=== PATIENT | female | born 1995 | race Caucasian/White ===

== ENCOUNTER 2017-07-21 08:45 | Inpatient (IN) | payer MEDICAID ==
[2017-07-21] MEDS ORDERED: Penicillin G Potassium 5 MILLUNITS in Sodium Chloride 0.9% 100 ML IV ONE (09:59)
[2017-07-21] MEDS: Lactated Ringers 1,000 ML IV SCH ×2 (10:23→18:01)
[2017-07-21] MEDS: Sodium Chloride 0.9% 10 ML Syringe FLUSH PRN (10:23)
[2017-07-21] MEDS ORDERED: Oxytocin/Normal Saline 10 UNIT/1,000 ML BAG IV SCH (11:30)
[2017-07-21] MEDS ORDERED: Nalbuphine 10 MG/1 ML Vial IVPUSH PRN (14:18)
[2017-07-21] MEDS: Penicillin G Potassium 2.5 MILLUNITS in Sodium Chloride 0.9% 100 ML IV SCH ×2 (14:30→23:38)
[2017-07-21] MEDS ORDERED: fentaNYL 300 MCG in Ropivacaine 200 ML EPIDUR ONE (16:15)
[2017-07-21] MEDS ORDERED: fentaNYL 100 MCG/2 ML SDV EPIDUR ONE (16:15)
--- NOTE | 2017-07-21 18:34 | PCM.LDHP ---
L&D History of Present Illness - General Date of Service: 07/21/17 Admit Problem/Dx: Patient Status Order with Admit Dx/Problem 07/21/17 08:45 Admission Status [Patient Status] [ADT] Routine 07/21/17 08:54 Admission Status [Patient Status] [ADT] Routine Admission Diagnosis/Problem Admission Diagnosis/Problem -related examination Source of Information: Patient History Limitations: Reports: No Limitations - History of Present Illness Introduction:: 22 yo primigravida here because of PROM.She is term. Pain Score: 9 - Related Data Allergies/Adverse Reactions: Allergies Allergy/AdvReac Type Severity Reaction Status Date / Time No Known Allergies Allergy Verified 07/21/17 09:51 Past Medical History [employer] History: Reports: Psychiatric History: Reports: Anxiety, Depression Hematologic History: Reports: Anemia Social & Family History - Family History Family Medical History: Noncontributory - Tobacco Use Smoking Status *Q: Former Smoker Years of Tobacco use: 4 Packs/Tins Daily: 1 Used Tobacco, but Quit: Yes Month Tobacco Last Used: October 2016 Second Hand Smoke Exposure: Yes - Caffeine Use Caffeine Use: Reports: None - Recreational Drug Use Recreational Drug Use: No Drug Use in Last 12 Months: No Recreational Drug Type: Reports: Marijuana/Hashish Recreational Drug Use Frequency: Not Used In Over 6 Months H&P Review of Systems - Review of Systems: Review Of Systems: ROS reveals no pertinent complaints other than HPI. L&D Exam - Exam Exam: See Below - Vital Signs Vital Signs: Last Vital Signs Temp Pulse 65 07/21/17 17:24 Resp BP 113/66 07/21/17 16:57 Pulse Ox 100 07/21/17 17:24 Weight: 64.864 kg - OB Specific Contraction Duration (sec): 40-80 Contraction Frequency (min): 1-3 Contraction Intensity: Moderate to Strong - Wagoner Score Wagoner Score Cervix Position: Posterior Wagoner Score Consistency: Soft Wagoner Score Dilation: 1-2 cm Wagoner Score Infant's Station: -2 - Exam General: Alert, Oriented HEENT: PERRLA, Conjunctiva Clear, EACs Clear, EOMI, Hearing Intact, Mucosa Moist & [place], Nares Patent, Normal Nasal Septum, Posterior Pharynx Clear, TMs Clear Neck: Supple, Trachea Midline Lungs: Clear to Auscultation, Normal Respiratory Effort Cardiovascular: Regular Rate, Regular Rhythm GI/Abdominal Exam: Normal Bowel Sounds, Soft, Non-Tender, No Organomegaly, No Distention, No Abnormal Bruit, No Mass, Pelvis Stable Rectal Exam: Normal Exam, Normal Rectal Tone Genitourinary: Normal external exam, Normal bimanual exam, Normal speculum exam Back Exam: Normal Inspection, Full Range of Motion Extremities: Normal Inspection, Normal Range of Motion, Non-Tender, No Pedal Edema, Normal Capillary Refill Skin: Warm, Dry, Intact Neurological: Cranial Nerves Intact, Reflexes Equal Bilateral Psychiatric: Alert, Normal Affect, Normal Mood - Patient Data Lab Results Last 24 hrs: Laboratory Results - last 24 hr 07/21/17 Range/Units 09:36 Membrane Rupture Positive H (NEGATIVE) - Problem List (1) Term SNOMED Code(s): 46016645 ICD Code: Z34.80 - ENCOUNTER FOR SUPRVSN OF NORMAL , UNSP TRIMESTER Status: Acute Current Visit: Yes (2) PROM (premature rupture of membranes) SNOMED Code(s): 77704911 ICD Code: O42.90 - YADIRA ROM, 7TH0 BETW RUPT & ONST LABR, UNSP WEEKS OF GEST Status: Acute Current Visit: Yes Qualifiers: PROM onset of labor timing: onset of labor within 24 hours of rupture PROM gestational age: full term Qualified Code(s): O42.02 - Full-term premature rupture of membranes, onset of labor within 24 hours of rupture (3) Group beta Strep positive SNOMED Code(s): 8388453733085 ICD Code: B95.1 - STREPTOCOCCUS, GROUP B, CAUSING DISEASES CLASSD ELSWHR Status: Acute Current Visit: Yes Problem List Initiated/Reviewed/Updated: Yes Orders Last 24hrs: Active Orders 24 hr Category Date Time Status Admission Status [Patient Status] [ADT] Routine ADT 07/21/17 08:45 Active Admission Status [Patient Status] [ADT] Routine ADT 07/21/17 08:54 Active Communication Order [RC] ASDIRECTED Care 07/21/17 11:25 Active Communication Order [RC] ASDIRECTED Care 07/21/17 11:25 Active Communication Order [RC] ASDIRECTED Care 07/21/17 11:25 Active Communication Order [RC] ASDIRECTED Care 07/21/17 11:25 Active Communication Order [RC] ASDIRECTED Care 07/21/17 11:27 Active Communication Order [RC] ASDIRECTED Care 07/21/17 11:27 Active Communication Order [RC] ASDIRECTED Care 07/21/17 11:27 Active Communication Order [RC] ASDIRECTED Care 07/21/17 11:27 Active Notify Provider [RC] PRN Care 07/21/17 11:25 Active Notify Provider [RC] PRN Care 07/21/17 11:27 Active Notify Provider [RC] STAT Care 07/21/17 11:25 Active Notify Provider [RC] STAT Care 07/21/17 11:27 Active PCEA Epidural [RC] ASDIRECTED Care 07/21/17 17:15 Active Vital Signs [RC] PER UNIT ROUTINE Care 07/21/17 11:25 Active Lactated Ringers [Ringers, Lactated] 1,000 ml Med 07/21/17 10:15 Active IV ASDIRECTED Nalbuphine [Nubain] Med 07/21/17 14:18 Active 10 mg IVPUSH Q3H PRN Oxytocin/Normal Saline [Pitocin in NS 10 UNITS/1,000 ML Med 07/21/17 11:30 Active ] 10 unit in 1,000 ml IV TITRATE Penicillin G Potassium [Pfizerpen] 2.5 millunits Med 07/21/17 14:30 Active Sodium Chloride 0.9% [Normal Saline] 100 ml IV Q4H Sodium Chloride 0.9% [Saline Flush] Med 07/21/17 10:04 Active 10 ml FLUSH ASDIRECTED PRN Peripheral IV Insertion Adult [OM.PC] Routine Oth 07/21/17 10:04 Ordered Medication Orders Lactated Ringer's (Ringers, Lactated) 1,000 mls @ 125 mls/hr IV ASDIRECTED [facility] Last Admin: 07/21/17 18:01 Dose: 125 mls/hr Infusion: 07/21/17 18:01 Dose: 125 mls/hr Admin: 07/21/17 10:23 Dose: 125 mls/hr Penicillin G Potassium 2.5 (millunits/ Sodium Chloride) 100 mls @ 100 mls/hr IV Q4H [facility] Last Admin: 07/21/17 14:30 Dose: 100 mls/hr Oxytocin/Sodium Chloride (Pitocin In Ns 10 Units/1,000 Ml) 10 unit in 1,000 mls @ 12 mls/hr IV TITRATE ROBBY; 2 MUNITS/MIN PRN Reason: Protocol Last Titration: 07/21/17 16:30 Dose: 0 munits/min, 0 mls/hr Titration: 07/21/17 15:49 Dose: 9 munits/min, 54 mls/hr Titration: 07/21/17 15:17 Dose: 10 munits/min, 60 mls/hr Titration: 07/21/17 14:43 Dose: 8 munits/min, 48 mls/hr Titration: 07/21/17 13:12 Dose: 6 munits/min, 36 mls/hr Titration: 07/21/17 12:34 Dose: 4 munits/min, 24 mls/hr Admin: 07/21/17 11:59 Dose: 2 munits/min, 12 mls/hr Nalbuphine HCl (Nubain) 10 mg IVPUSH Q3H PRN PRN Reason: Pain Last Admin: 07/21/17 14:34 Dose: 10 mg Sodium Chloride (Saline Flush) 10 ml FLUSH ASDIRECTED PRN PRN Reason: Keep Vein Open Last Admin: 07/21/17 10:23 Dose: 10 ml Assessment/Plan Comment:: Proceed with Augmentation of labor with PITOCIN,and start PCN for GBS prophylaxis.
[2017-07-21] MEDS ORDERED: hydrOXYzine HCl 50 MG/ML SDV IM PRN ×2 (19:24)
[2017-07-21] MEDS ORDERED: ePHEDrine 50 MG/ML SDV IVPUSH PRN (19:24)
[2017-07-21] MEDS ORDERED: Promethazine 25 MG/ML SDV IV PRN (19:24)
[2017-07-21] MEDS ORDERED: diphenhydrAMINE 50 MG/ML SDV IVPUSH PRN (19:24)
[2017-07-21] MEDS ORDERED: Naloxone 0.4 MG in Sodium Chloride 0.9% 100 ML IV PRN (19:24)
[2017-07-21] MEDS ORDERED: Naloxone 0.4 MG/ML SDV IVPUSH PRN (19:24)
[2017-07-21] MEDS ORDERED: diphenhydrAMINE 50 MG/ML SDV IV PRN (19:28)
[2017-07-21] MEDS ORDERED: Ondansetron 4 MG/2 ML SDV IVPUSH PRN (19:29)
[2017-07-21] MEDS ORDERED: Acetaminophen 325 MG Tab PO PRN (20:53)
[2017-07-21] MEDS: Ibuprofen 600 MG Tab PO PRN (23:37)
[2017-07-22] MEDS: Ibuprofen 600 MG Tab PO PRN ×5 (03:54→23:29)
[2017-07-22] MEDS: Sodium Chloride 0.9% 10 ML Syringe FLUSH PRN (04:00)
[2017-07-22] MEDS ORDERED: Docusate Sodium 100 MG Cap PO PRN (14:32)
--- NOTE | 2017-07-22 18:11 | DEL ---
DATE OF DELIVERY: 07/21/2017 PREOPERATIVE DIAGNOSES: 1. Nonreassuring heart rate at second stage of labor. 2. Group B status. 3. Maternal exertion. SURGEON:DR Mendoza POSTOPERATIVE DIAGNOSES: 1. Nonreassuring heart rate due to a nuchal cord. 2. Vacuum delivery. 3. Right perineal laceration. ANESTHESIA: Epidural. PROCEDURE PERFORMED: Vacuum-assisted delivery. INDICATIONS: Ms. Rubio is a 22-year-old female who is a primigravida with estimated gestation of about 38 and 6, labor course was uneventful. However, there was delayed second stage and bradycardia to about 80 to 90 beats per minute with poor recovery at the end of delivery. She had about 1-1/2 hours of pushing. heart rate strip was reviewed. The patient had adequate epidural anesthesia. The cervix had been fully dilated. membranes were ruptured since this morning. Estimated weight about 7 pounds. The patient and boyfriend were informed of the diagnosis and operative vaginal delivery was recommended. Alternatives including section and the procedure risks were reviewed them. Verbal consent was obtained. The patient was pushing actively. The position of the baby was OA vertex presentation, +3 station. The M-shaped cuff vacuum portable was placed. Position was ascertained at the J-point and with 1 push less than a minute, the baby delivered successfully. A nuchal cord was encountered which was reduced. The rest of the baby was delivered with gentle traction. The vacuum cup was detached. Baby's mouth was wiped. Cord was cut and clamped, and baby was handed to the waiting nurses. The baby's heart rate was in the 140s and cried spontaneously after stimulation. Cord blood was obtained and the placenta delivered within 5 minutes intact by gentle traction. The vagina was inspected and a left sulcus tear was noted which was repaired with 4-0 Vicryl. It was second-degree. Excellent closure was accomplished. Estimated blood loss about 350 to 400 mL. Sponge and needle counts were correct after completion of the procedure. scores of the male infant were 7 and 9 at 1 and 5 minutes. There was minimal caput of the head and facial exam was symmetric and the baby was moving all of the 4 extremities spontaneously. The mother and baby are stable in the delivery room. /[id number] BEHZAD DELACRUZ
--- NOTE | 2017-07-22 19:38 | PCM.PNPP ---
- General Info Date of Service: 07/22/17 Admission Dx/Problem (Free Text): Delievered yesterday. Doing well. Some constipation. - Review of Systems General: Reports: No Symptoms HEENT: Reports: No Symptoms Pulmonary: Reports: No Symptoms Cardiovascular: Reports: No Symptoms Gastrointestinal: Reports: No Symptoms Genitourinary: Reports: No Symptoms Musculoskeletal: Reports: No Symptoms Skin: Reports: No Symptoms Neurological: Reports: No Symptoms Psychiatric: Reports: No Symptoms - General Info Date of Service: 07/22/17 - Patient Data Vital Signs - Most Recent: Last Vital Signs Temp 97.4 F 07/22/17 16:00 Pulse 74 07/22/17 16:00 Resp 18 07/22/17 16:00 BP 128/70 07/22/17 16:00 Pulse Ox 100 07/22/17 16:00 Weight - Most Recent: 64.864 kg I&O - Last 24 Hours: Intake & Output 07/22/17 07/22/17 07/22/17 06:59 14:59 22:59 Intake Total 3070 Output Total 800 Balance 2270 Lab Results - Last 24 Hours: Laboratory Results - last 24 hr 07/22/17 Range/Units 06:43 WBC 11.9 (4.5-12.0) X10-3/uL RBC 3.73 (3.23-5.20) x10(6)uL Hgb 8.7 L (11.5-15.5) g/dL Hct 27.7 L (30.0-51.3) % MCV 74.4 L (80-96) fL MCH 23.4 L (27.7-33.6) pg MCHC 31.5 L (32.2-35.4) g/dL RDW 17.7 H (11.5-15.5) % Plt Count 183 (125-369) X10(3)uL MPV 8.3 (7.4-10.4) fL Neut % (Auto) 80.8 (46-82) % Lymph % (Auto) 13.4 (13-37) % [place] % (Auto) 5.3 (4-12) % Eos % (Auto) 0 L (1.0-5.0) % Baso % (Auto) 0 (0-2) % Neut # (Auto) 9.7 H (1.6-8.3) # Lymph # (Auto) 1.6 (0.6-5.0) # [place] # (Auto) 0.6 (0.0-1.3) # Eos # (Auto) 0.0 (0.0-0.8) # Baso # (Auto) 0.0 (0.0-0.2) # Med Orders - Current: Current Medications Acetaminophen (Tylenol) 650 mg PO Q4H PRN PRN Reason: mild pain or fever Last Admin: 07/22/17 19:14 Dose: 650 mg Diphenhydramine HCl (Benadryl) 25 mg IVPUSH ASDIRECTED PRN PRN Reason: PRURITUS Last Admin: 07/21/17 21:31 Dose: 25 mg Docusate Sodium (Colace) 100 mg PO BID PRN PRN Reason: Stool Softener Hydroxyzine HCl (Vistaril) 25 - 50 mg IM Q6H PRN PRN Reason: PRURITIS Hydroxyzine HCl (Vistaril) 0 mg IM Q4H PRN PRN Reason: N/V Lactated Ringer's (Ringers, Lactated) 1,000 mls @ 125 mls/hr IV ASDIRECTED ROBBY Last Admin: 07/21/17 18:01 Dose: 125 mls/hr Oxytocin/Sodium Chloride (Pitocin In Ns 10 Units/1,000 Ml) 10 unit in 1,000 mls @ 12 mls/hr IV TITRATE ROBBY; 2 MUNITS/MIN PRN Reason: Protocol Last Titration: 07/21/17 16:30 Dose: 0 munits/min, 0 mls/hr Ibuprofen (Motrin) 600 mg PO Q4H PRN PRN Reason: Pain Last Admin: 07/22/17 18:24 Dose: 600 mg Sodium Chloride (Saline Flush) 10 ml FLUSH ASDIRECTED PRN PRN Reason: Keep Vein Open Last Admin: 07/22/17 04:00 Dose: 10 ml Discontinued Medications Diphenhydramine HCl (Benadryl) 25 mg IV ASDIRECTED PRN PRN Reason: PRURITIS Ephedrine Sulfate (Ephedrine Sulfate) 5 mg IVPUSH ASDIRECTED PRN PRN Reason: HYPOTENSION Penicillin G Potassium 5 (millunits/ Sodium Chloride) 100 mls @ 100 mls/hr IV ONETIME ONE Stop: 07/21/17 10:58 Last Admin: 07/21/17 10:33 Dose: 100 mls/hr Penicillin G Potassium 2.5 (millunits/ Sodium Chloride) 100 mls @ 100 mls/hr IV Q4H ROBBY Last Admin: 07/21/17 23:38 Dose: Not Given Naloxone HCl 0.4 mg/ Sodium (Chloride) 101 mls @ 25 mls/hr IV ASDIRECTED PRN PRN Reason: PER ORDER OF ANESTHESIA Nalbuphine HCl (Nubain) 10 mg IVPUSH Q3H PRN PRN Reason: Pain Last Admin: 07/21/17 14:34 Dose: 10 mg Naloxone HCl (Narcan) 0.1 mg IVPUSH ASDIRECTED PRN PRN Reason: RESPIRATORY STATUS Ondansetron HCl (Zofran) 4 mg IVPUSH Q6H PRN PRN Reason: NAUSEA/VOMITING Promethazine HCl (Phenergan) 6.25 - 12.5 mg IV Q4H PRN PRN Reason: NAUSEA AND VOMITING - Interaction Disposition, : in Room with Family Support Person: Mother, Significant Other - Recovery Exam Fundal Tone: Firm Fundal Level: 1 Fingerbreadths Below Umbilicus Fundal Placement: Midline Lochia Amount: Small Lochia Color: Rubra/Red Perineum Description: Intact, Minimal Bruising/Swelling Episiotomy/Laceration: Approximated Bladder Status: Voiding Urinary Elimination: Voided - Exam General: Alert, Oriented HEENT: Pupils Equal Neck: Supple Lungs: Clear to Auscultation, Normal Respiratory Effort Cardiovascular: Regular Rate, Regular Rhythm GI/Abdominal Exam: Normal Bowel Sounds, Soft, Non-Tender, No Organomegaly, No Distention, No Abnormal Bruit, No Mass, Pelvis Stable Extremities: Normal Inspection, Normal Range of Motion, Non-Tender, No Pedal Edema, Normal Capillary Refill Skin: Warm, Dry, Intact Wound/Incisions: Healing Well Neurological: No New Focal Deficit Psy/Mental Status: Alert, Normal Affect, Normal Mood - Problem List & Annotations (1) Term SNOMED Code(s): 27391276 Code(s): Z34.80 - ENCOUNTER FOR SUPRVSN OF NORMAL , UNSP TRIMESTER Status: Acute Current Visit: Yes (2) PROM (premature rupture of membranes) SNOMED Code(s): 26664626 Code(s): O42.90 - YADIRA ROM, 7TH0 BETW RUPT & ONST LABR, UNSP WEEKS OF GEST Status: Acute Current Visit: Yes Qualifiers: PROM onset of labor timing: onset of labor within 24 hours of rupture PROM gestational age: full term Qualified Code(s): O42.02 - Full-term premature rupture of membranes, onset of labor within 24 hours of rupture (3) Group beta Strep positive SNOMED Code(s): 4320535831268 Code(s): B95.1 - STREPTOCOCCUS, GROUP B, CAUSING DISEASES CLASSD ELSWHR Status: Acute Current Visit: Yes (4) Anemia affecting first SNOMED Code(s): 48879010 Code(s): O99.019 - ANEMIA COMPLICATING , UNSPECIFIED TRIMESTER Status: Acute Current Visit: Yes - Problem List Review Problem List Initiated/Reviewed/Updated: Yes - My Orders Last 24 Hours: My Active Orders 07/21/17 20:53 Vital Signs [RC] QSHIFT Acetaminophen [Tylenol] 650 mg PO Q4H PRN Ibuprofen [Motrin] 600 mg PO Q4H PRN Ice Therapy [OM.PC] Per Unit Routine Perineal Care [OM.PC] Per Unit Routine Sitz Bath [OM.PC] Per Unit Routine Resuscitation Status Routine 07/22/17 14:32 Docusate Sodium [Colace] 100 mg PO BID PRN - Plan Plan:: Hgb 8.7. Willneed Iron suppementation upon discharge
--- NOTE | 2017-07-23 08:43 | PCM.PNPP ---
- General Info Date of Service: 07/23/17 Subjective Update: has no complaints. - Review of Systems General: Reports: No Symptoms HEENT: Reports: No Symptoms Pulmonary: Reports: No Symptoms Cardiovascular: Reports: No Symptoms - General Info Date of Service: 07/23/17 - Patient Data Vital Signs - Most Recent: Last Vital Signs Temp 98.1 F 07/22/17 23:33 Pulse 86 07/22/17 23:33 Resp 16 07/22/17 23:33 BP 118/57 L 07/22/17 23:33 Pulse Ox 99 07/22/17 23:33 Weight - Most Recent: 64.864 kg Med Orders - Current: Current Medications Acetaminophen (Tylenol) 650 mg PO Q4H PRN PRN Reason: mild pain or fever Last Admin: 07/22/17 19:14 Dose: 650 mg Diphenhydramine HCl (Benadryl) 25 mg IVPUSH ASDIRECTED PRN PRN Reason: PRURITUS Last Admin: 07/21/17 21:31 Dose: 25 mg Docusate Sodium (Colace) 100 mg PO BID PRN PRN Reason: Stool Softener Hydroxyzine HCl (Vistaril) 25 - 50 mg IM Q6H PRN PRN Reason: PRURITIS Hydroxyzine HCl (Vistaril) 0 mg IM Q4H PRN PRN Reason: N/V Lactated Ringer's (Ringers, Lactated) 1,000 mls @ 125 mls/hr IV ASDIRECTED ROBBY Last Admin: 07/21/17 18:01 Dose: 125 mls/hr Oxytocin/Sodium Chloride (Pitocin In Ns 10 Units/1,000 Ml) 10 unit in 1,000 mls @ 12 mls/hr IV TITRATE ROBBY; 2 MUNITS/MIN PRN Reason: Protocol Last Titration: 07/21/17 16:30 Dose: 0 munits/min, 0 mls/hr Ibuprofen (Motrin) 600 mg PO Q4H PRN PRN Reason: Pain Last Admin: 07/22/17 23:29 Dose: 600 mg Sodium Chloride (Saline Flush) 10 ml FLUSH ASDIRECTED PRN PRN Reason: Keep Vein Open Last Admin: 07/22/17 04:00 Dose: 10 ml Discontinued Medications Diphenhydramine HCl (Benadryl) 25 mg IV ASDIRECTED PRN PRN Reason: PRURITIS Ephedrine Sulfate (Ephedrine Sulfate) 5 mg IVPUSH ASDIRECTED PRN PRN Reason: HYPOTENSION Penicillin G Potassium 5 (millunits/ Sodium Chloride) 100 mls @ 100 mls/hr IV ONETIME ONE Stop: 07/21/17 10:58 Last Admin: 07/21/17 10:33 Dose: 100 mls/hr Penicillin G Potassium 2.5 (millunits/ Sodium Chloride) 100 mls @ 100 mls/hr IV Q4H ROBBY Last Admin: 07/21/17 23:38 Dose: Not Given Naloxone HCl 0.4 mg/ Sodium (Chloride) 101 mls @ 25 mls/hr IV ASDIRECTED PRN PRN Reason: PER ORDER OF ANESTHESIA Nalbuphine HCl (Nubain) 10 mg IVPUSH Q3H PRN PRN Reason: Pain Last Admin: 07/21/17 14:34 Dose: 10 mg Naloxone HCl (Narcan) 0.1 mg IVPUSH ASDIRECTED PRN PRN Reason: RESPIRATORY STATUS Ondansetron HCl (Zofran) 4 mg IVPUSH Q6H PRN PRN Reason: NAUSEA/VOMITING Promethazine HCl (Phenergan) 6.25 - 12.5 mg IV Q4H PRN PRN Reason: NAUSEA AND VOMITING - Infant Interaction Infant Disposition, : in Room with Family Support Person: Mother, Significant Other - Recovery Exam Fundal Tone: Firm Fundal Level: At Umbilicus Fundal Placement: Midline Lochia Amount: Small Lochia Color: Rubra/Red Perineum Description: Intact, Minimal Bruising/Swelling Episiotomy/Laceration: Approximated Bladder Status: Voiding Urinary Elimination: Voided - Exam General: Alert, Oriented HEENT: Pupils Equal Neck: Supple Lungs: Clear to Auscultation, Normal Respiratory Effort Cardiovascular: Regular Rate, Regular Rhythm GI/Abdominal Exam: Normal Bowel Sounds, Soft, Non-Tender, No Organomegaly, No Distention, No Abnormal Bruit, No Mass, Pelvis Stable Extremities: Normal Inspection, Normal Range of Motion, Non-Tender, No Pedal Edema, Normal Capillary Refill Skin: Warm, Dry, Intact Wound/Incisions: Healing Well Neurological: No New Focal Deficit Psy/Mental Status: Alert, Normal Affect, Normal Mood - Problem List & Annotations (1) Term SNOMED Code(s): 65738025 Code(s): Z34.80 - ENCOUNTER FOR SUPRVSN OF NORMAL , UNSP TRIMESTER Status: Acute Current Visit: Yes (2) PROM (premature rupture of membranes) SNOMED Code(s): 51084697 Code(s): O42.90 - YADIRA ROM, 7TH0 BETW RUPT & ONST LABR, UNSP WEEKS OF GEST Status: Acute Current Visit: Yes Qualifiers: PROM onset of labor timing: onset of labor within 24 hours of rupture PROM gestational age: full term Qualified Code(s): O42.02 - Full-term premature rupture of membranes, onset of labor within 24 hours of rupture (3) Group beta Strep positive SNOMED Code(s): 5181237413833 Code(s): B95.1 - STREPTOCOCCUS, GROUP B, CAUSING DISEASES CLASSD ELSWHR Status: Acute Current Visit: Yes (4) Anemia affecting first SNOMED Code(s): 94002133 Code(s): O99.019 - ANEMIA COMPLICATING , UNSPECIFIED TRIMESTER Status: Acute Current Visit: Yes - Problem List Review Problem List Initiated/Reviewed/Updated: Yes - My Orders Last 24 Hours: My Active Orders 07/22/17 14:32 Docusate Sodium [Colace] 100 mg PO BID PRN - Plan Plan:: Discharge home with Iron suppementation upon discharge
--- NOTE | 2017-07-23 09:51 | DISCH ---
DISCHARGE DATE: 07/23/2017 REASON FOR ADMISSION: 1. Premature rupture of membranes. 2. Augmentation of labor. 3. Term . 4. Anemia. 5. Group B strep positive. DISCHARGE DIAGNOSES: 1. Premature rupture of membranes. 2. Augmentation of labor. 3. Term . 4. Anemia. 5. Group B strep positive. PROCEDURE: Vaginal delivery by vacuum extraction on 07/21. BRIEF HISTORY AND HOSPITAL COURSE: A 22-year-old female admitted at term after rupture of membranes without onset of labor. Pitocin was initiated and the patient delivered a live male infant. , she did well with the exception of mild constipation, anemia, and will be discharged to home today on iron supplementation. DISCHARGE MEDICATIONS: Ferrous sulfate 324 mg p.o. b.i.d. FOLLOWUP: Will see within 1 week at the clinic by myself. Please note that I spent 35 minutes in the discharge of this patient. /[id number] YENNY/DARLENE
[2017-07-23] MEDS: Ibuprofen 600 MG Tab PO PRN (10:34)
== END 2017-07-23 15:50 | disposition home or self-care (01) | DRG 775 ==
LOC: FB.OB 08:45 → FB.OBCHECK 08:45 → FB.OB 08:46 → FB.OBCHECK 08:46
PROVIDERS: ADMIT Family Medicine; ATTEND Family Medicine
PROC: 10D07Z6 Extraction of Products of Conception, Vacuum, Via Natural or Artificial Opening (ICD-10-PCS; principal; 2017-07-21)
PROC: 0KQM0ZZ Repair Perineum Muscle, Open Approach (ICD-10-PCS; 2017-07-21)
PROC: 6A550ZT Pheresis of Cord Blood Stem Cells, Single (ICD-10-PCS; 2017-07-21)
DX: O42.02 Full-term premature rupture of membranes, onset of labor within 24 hours of rupture (principal); O69.81X0 Labor and delivery complicated by cord around neck, without compression, not applicable or unspecified; O99.824 Streptococcus B carrier state complicating childbirth; O76 Abnormality in fetal heart rate and rhythm complicating labor and delivery; O75.81 Maternal exhaustion complicating labor and delivery; O71.89 Other specified obstetric trauma; Z3A.38 38 weeks gestation of pregnancy; Z37.0 Single live birth; O99.02 Anemia complicating childbirth
CPT/HCPCS: 36415; 51701; 59300; 59409; 84112; 85025; A9270-GY; J1200; J2300; J2540; J2590; J2795; J3010; J7030; J7050; J7120

== ENCOUNTER 2017-09-25 17:35 | Emergency (ER) | payer MEDICAID ==
[2017-09-25] MEDS: Ketorolac 30 MG/ML SDV IM ONE (18:00)
--- NOTE | 2017-09-25 18:52 | EDM.PDOC ---
ED HPI GENERAL MEDICAL PROBLEM - General Chief Complaint: Neck Problem Stated Complaint: POSSIBLE WHIPLASH Time Seen by Provider: 09/25/17 18:20 Source of Information: Reports: Patient History Limitations: Reports: No Limitations - History of Present Illness INITIAL COMMENTS - FREE TEXT/NARRATIVE: pulled hair during rough intercourse last night, awoke this morning with neck pain and occipital headache, no n/v. 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: Psychiatric History: Reports: Anxiety, Depression Hematologic History: Reports: Anemia Social & Family History - Family History Family Medical History: Noncontributory - Tobacco Use Smoking Status *Q: Former Smoker Years of Tobacco use: 4 Packs/Tins Daily: 1 Used Tobacco, but Quit: Yes Month/Year Tobacco Last Used: October 2016 Second Hand Smoke Exposure: Yes - Caffeine Use Caffeine Use: Reports: None - Recreational Drug Use Recreational Drug Use: No Drug Use in Last 12 Months: No Recreational Drug Type: Reports: Marijuana/Hashish Recreational Drug Use Frequency: Not Used In Over 6 Months ED ROS GENERAL - Review of Systems Review Of Systems: See Below Constitutional: Reports: No Symptoms HEENT: Reports: No Symptoms Respiratory: Reports: No Symptoms Cardiovascular: Reports: No Symptoms Endocrine: Reports: No Symptoms GI/Abdominal: Reports: No Symptoms : Reports: No Symptoms Musculoskeletal: Reports: Neck Pain Neurological: Reports: Headache Psychiatric: Reports: No Symptoms Hematologic/Lymphatic: Reports: No Symptoms Immunologic: Reports: No Symptoms ED EXAM, UPPER BACK/NECK PAIN - Physical Exam Exam: See Below Exam Limited By: No Limitations General Appearance: Alert, WD/WN, No Apparent Distress Eye Exam: Bilateral Eye: EOMI, PERRL Nose Exam: Normal Inspection Head Exam: Atraumatic, Normocephalic Neck Exam: Tenderness (lower posterior neck) Nexus Criteria: Posterior, Midline Cervical Tenderness Extremities: Normal Inspection Neurologic: No Motor/Sensory Deficits, Alert, Normal Mood/Affect Psychiatric: Normal Affect Skin Exam: Normal Color Course - Orders/Labs/Meds Orders: Active Orders 24 hr Category Date Time Status Cervical Spine wo Cont [CT] Stat Exams 09/25/17 17:49 Ordered Head wo Cont [CT] Stat Exams 09/25/17 17:49 Ordered Meds: Medications Discontinued Medications Generic Name Dose Route Start Last Admin Trade Name Saravanan PRN Reason Stop Dose Admin Ketorolac Tromethamine 30 mg 09/25/17 17:50 09/25/17 18:00 Toradol IM 09/25/17 17:51 30 mg ONETIME ONE Administration - Radiology Interpretation Free Text/Narrative:: CT Head & C-spine: NAD Departure - Departure Time of Disposition: 18:50 Disposition: Home, W Home Health Agency 06 Clinical Impression: Cervical strain, acute, Cephalgia - Discharge Information Instructions: Cervical Sprain, [id number], Tension Headache, [id number] Referrals: Alcides Mendoza MD [Primary Care Provider] - - My Orders Last 24 Hours: My Active Orders 09/25/17 17:49 Cervical Spine wo Cont [CT] Stat Head wo Cont [CT] Stat - Assessment/Plan Last 24 Hours: My Active Orders 09/25/17 17:49 Cervical Spine wo Cont [CT] Stat Head wo Cont [CT] Stat
== END 2017-09-25 19:00 | disposition home or self-care (01) ==
LOC: FB.ED 17:35
DX: S16.1XXA Strain of muscle, fascia and tendon at neck level, initial encounter (principal); R51 Headache; Z87.891 Personal history of nicotine dependence; X50.9XXA Other and unspecified overexertion or strenuous movements or postures, initial encounter; Y93.89 Activity, other specified
CPT/HCPCS: 70450; 72125; 96372; 99283; J1885

== ENCOUNTER 2017-12-09 09:46 | Emergency (ER) | payer OTHER, MEDICAID ==
--- NOTE | 2017-12-09 10:32 | EDM.PDOC ---
ED HPI GENERAL MEDICAL PROBLEM - General Chief Complaint: General Stated Complaint: HERINA PAIN Time Seen by Provider: 12/09/17 09:46 Source of Information: Reports: Patient History Limitations: Reports: No Limitations - History of Present Illness INITIAL COMMENTS - FREE TEXT/NARRATIVE: 22 y.o.w.kieran came to the ed because she has rectal pain with any BM for 5 months. Was seen in the clinic for that several months ago. Her symptoms do not get better or worse. She has loose stools as well. No blood in stool, no prev surgeries. She gave 5 months ago. No other acute medical issues. CARLI 112/ 71 RR 18 Pulse ox 100% Temp 36.7 Pulse 78 Onset Date: 11/05/17 Onset Time: 08:00 Duration: Week(s):, Intermittent Location: Reports: Abdomen (rectal) Quality: Reports: Ache Severity: Mild Improves with: Reports: Rest Worsens with: Reports: Other (BMs) Associated Symptoms: Reports: No Other Symptoms ractal area Pain Score (Numeric/FACES): 8 - Related Data Allergies Allergy/AdvReac Type Severity Reaction Status Date / Time No Known Allergies Allergy Verified 12/09/17 09:53 Home Meds: Home Meds Hydrocortisone [Proctozone-HC 2.5% Crm] 1 applic TOP BID PRN #1 tube 12/09/17 [ Rx] Past Medical History - Past Health History Medical/Surgical History: Denies 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: Psychiatric History: Reports: Anxiety, Depression Hematologic History: Reports: Anemia Social & Family History - Family History Family Medical History: Noncontributory - Tobacco Use Smoking Status *Q: Current Every Day Smoker Years of Tobacco use: 3 Packs/Tins Daily: 0.5 - Caffeine Use Caffeine Use: Reports: Soda - Recreational Drug Use Recreational Drug Use: No ED ROS GENERAL - Review of Systems Review Of Systems: See Below Constitutional: Reports: No Symptoms HEENT: Reports: No Symptoms Respiratory: Reports: No Symptoms Cardiovascular: Reports: No Symptoms Endocrine: Reports: No Symptoms GI/Abdominal: Reports: No Symptoms, Other (Hemorrhoid) : Reports: No Symptoms Musculoskeletal: Reports: No Symptoms Skin: Reports: No Symptoms Neurological: Reports: No Symptoms Psychiatric: Reports: No Symptoms Hematologic/Lymphatic: Reports: No Symptoms Immunologic: Reports: No Symptoms ED EXAM, GENERAL - Physical Exam Exam: See Below Exam Limited By: No Limitations General Appearance: Alert, WD/WN, Mild Distress Eye Exam: Bilateral Eye: Normal Inspection Ears: Normal External Exam Ear Exam: Bilateral Ear: Auricle Normal Nose: Normal Inspection, Normal Mucosa Throat/Mouth: Normal Inspection Head: Atraumatic Neck: Normal Inspection, Supple, Non-Tender, Full Range of Motion Respiratory/Chest: No Respiratory Distress, Lungs Clear, Normal Breath Sounds, No Accessory Muscle Use, Chest Non-Tender Cardiovascular: Normal Peripheral Pulses, Regular Rate, Rhythm, No Edema, No Gallop, No JVD, No Murmur Peripheral Pulses: 1+: Brachial (R) GI/Abdominal: Normal Bowel Sounds (Female) Exam: Deferred Rectal (Female) Exam: Hemorrhoids Back Exam: Normal Inspection, Full Range of Motion Extremities: Normal Inspection Neurological: Alert, Oriented, CN II-XII Intact, Normal Cognition, Normal Gait Psychiatric: Normal Affect Skin Exam: Warm, Dry, Intact, Normal Color, No Rash Lymphatic: No Adenopathy Course - Vital Signs Text/Narrative:: 22 y.o.w.f came to the ed because she has rectal pain with any BM for 5 months. Was seen in the clinic for that several months ago. Her symptoms do not get better or worse. She has loose stools as well. No blood in stool, no prev surgeries. She gave 5 months ago. No other acute medical issues. CARLI 112/ 71 RR 18 Pulse ox 100% Temp 36.7 Pulse 78 PE; WNWD W F with external hemorrhoids, no bleed Impression: external hemorrhoids Tx> Prescription Preparation H 2.5 % Plan: D/C with instructions Last Recorded V/S: Last Vital Signs Temp 36.6 C 12/09/17 10:41 Pulse 86 12/09/17 10:41 Resp 17 12/09/17 10:41 BP 125/78 12/09/17 10:41 Pulse Ox 100 12/09/17 10:41 Departure - Departure Time of Disposition: 10:22 Disposition: Home, Self-Care 01 Condition: Good Clinical Impression: External hemorrhoid - Discharge Information Prescriptions: Hydrocortisone [Proctozone-HC 2.5% Crm] 1 applic TOP BID PRN #1 tube PRN Reason: 2-4 times per day Instructions: Hemorrhoids Referrals: Alcides Mendoza MD [Primary Care Provider] - Rahat Cedeño MD [Physician] - Forms: ED Department Discharge, ED Return to Work/School Form Additional Instructions: Please apply the cream 2-4 times daily to the affected area, please f/u, come back if your symptoms get worse acutely.
== END 2017-12-09 10:41 | disposition home or self-care (01) ==
LOC: FB.ED 09:46
DX: K64.4 Residual hemorrhoidal skin tags (principal); F17.210 Nicotine dependence, cigarettes, uncomplicated
CPT/HCPCS: 99282

== ENCOUNTER 2018-11-24 23:21 | Emergency (ER) | payer MEDICAID ==
--- NOTE | 2018-11-25 00:09 | EDM.PDOC ---
ED HPI GENERAL MEDICAL PROBLEM - General Chief Complaint: Drug or Alcohol Abuse Stated Complaint: OD Time Seen by Provider: 11/25/18 00:04 Source of Information: Reports: Patient History Limitations: Reports: No Limitations - History of Present Illness INITIAL COMMENTS - FREE TEXT/NARRATIVE: 23 yo female came in due to unresponsiveness. She apparently took some drugs-' heroine laced with fentanyl',and passed out.A friend found her and called [facility].She revived after one dose of Narcan.She is currently responsive,alert and wants to go back home.She recently had an . 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 - Physical Exam Exam: See Below Exam Limited By: Altered Mental Status General Appearance: Alert, Anxious Eye Exam: Bilateral Eye: PERRL Ears: Normal External Exam Nose: Normal Inspection Throat/Mouth: Normal Inspection Head Exam: Atraumatic Neck: Normal Inspection Respiratory/Chest: No Respiratory Distress Neuro Exam (Abbreviated): Alert EKG INTERPRETATION Rhythm: NSR Course - Vital Signs Last Recorded V/S: Last Vital Signs Temp 98.2 F 11/24/18 23:30 Pulse 98 11/24/18 23:30 Resp 26 H 11/24/18 23:30 BP 121/85 11/24/18 23:30 Pulse Ox 95 11/24/18 23:30 - Orders/Labs/Meds Orders: Active Orders 24 hr Category Date Time Status EKG Documentation Completion [RC] ASDIRECTED Care 11/24/18 23:21 Active EKG 12 Lead [EK] Routine Ther 11/24/18 23:21 Ordered Labs: Laboratory Tests 11/24/18 11/24/18 11/24/18 Range/Units 23:30 23:30 23:40 WBC 10.2 (4.5-12.0) X10-3/uL RBC 3.94 (3.23-5.20) x10(6)uL Hgb 10.8 L (11.5-15.5) g/dL Hct 32.3 (30.0-51.3) % MCV 81.9 (80-96) fL MCH 27.4 L (27.7-33.6) pg MCHC 33.5 (32.2-35.4) g/dL RDW 16.8 H (11.5-15.5) % Plt Count 247 (125-369) X10(3)uL MPV 7.9 (7.4-10.4) fL Neut % (Auto) 82.3 H (46-82) % Lymph % (Auto) 11.4 L (13-37) % [place] % (Auto) 4.9 (4-12) % Eos % (Auto) 1 (1.0-5.0) % Baso % (Auto) 0 (0-2) % Neut # (Auto) 8.4 H (1.6-8.3) # Lymph # (Auto) 1.2 (0.6-5.0) # [place] # (Auto) 0.5 (0.0-1.3) # Eos # (Auto) 0.1 (0.0-0.8) # Baso # (Auto) 0.0 (0.0-0.2) # Sodium (135-145) mmol/L Potassium (3.5-5.3) mmol/L Chloride (100-110) mmol/L Carbon Dioxide (21-32) mmol/L BUN (7-18) mg/dL Creatinine (0.55-1.02) mg/dL Est Cr Clr Drug Dosing mL/min Estimated GFR (MDRD) (>60) BUN/Creatinine Ratio (9-20) Glucose (80-116) mg/dL Calcium (8.6-10.2) mg/dL Total Bilirubin (0.1-1.3) mg/dL AST (5-25) IU/L ALT (12-36) U/L Alkaline Phosphatase (56-112) IU/L Troponin I (<0.017-0.056) ng/mL Total Protein (6.0-8.0) g/dL Albumin (3.5-5.2) g/dL Globulin g/dL Albumin/Globulin Ratio Urine HCG, Qual Positive H (NEGATIVE) Urine Opiates Screen Positive H (NEGATIVE) Ur Oxycodone Screen Negative (NEGATIVE) Ur Propoxyphene Screen Negative (NEGATIVE) Ur Barbituates Screen Negative (NEGATIVE) Ur Tricyclics Screen Negative (NEGATIVE) Ur Phencyclidine Scrn Negative (NEGATIVE) Ur Amphetamine Screen Negative (NEGATIVE) Urine MDMA Screen Negative (NEGATIVE) U Benzodiazepines Scrn Positive H (NEGATIVE) U Cocaine Metab Screen Positive H (NEGATIVE) U Marijuana (THC) Screen Positive H (NEGATIVE) 11/24/18 11/24/18 Range/Units 23:40 23:40 WBC (4.5-12.0) X10-3/uL RBC (3.23-5.20) x10(6)uL Hgb (11.5-15.5) g/dL Hct (30.0-51.3) % MCV (80-96) fL MCH (27.7-33.6) pg MCHC (32.2-35.4) g/dL RDW (11.5-15.5) % Plt Count (125-369) X10(3)uL MPV (7.4-10.4) fL Neut % (Auto) (46-82) % Lymph % (Auto) (13-37) % [place] % (Auto) (4-12) % Eos % (Auto) (1.0-5.0) % Baso % (Auto) (0-2) % Neut # (Auto) (1.6-8.3) # Lymph # (Auto) (0.6-5.0) # [place] # (Auto) (0.0-1.3) # Eos # (Auto) (0.0-0.8) # Baso # (Auto) (0.0-0.2) # Sodium 139 (135-145) mmol/L Potassium 3.4 L (3.5-5.3) mmol/L Chloride 102 (100-110) mmol/L Carbon Dioxide 27 (21-32) mmol/L BUN 12 (7-18) mg/dL Creatinine 0.7 (0.55-1.02) mg/dL Est Cr Clr Drug Dosing 98.32 mL/min Estimated GFR (MDRD) > 60 (>60) BUN/Creatinine Ratio 17.1 (9-20) Glucose 149 H (80-116) mg/dL Calcium 8.6 (8.6-10.2) mg/dL Total Bilirubin 0.4 (0.1-1.3) mg/dL AST 46 H (5-25) IU/L ALT 35 (12-36) U/L Alkaline Phosphatase 79 (56-112) IU/L Troponin I < 0.017 L (<0.017-0.056) ng/mL Total Protein 6.6 (6.0-8.0) g/dL Albumin 3.5 (3.5-5.2) g/dL Globulin 3.1 g/dL Albumin/Globulin Ratio 1.1 Urine HCG, Qual (NEGATIVE) Urine Opiates Screen (NEGATIVE) Ur Oxycodone Screen (NEGATIVE) Ur Propoxyphene Screen (NEGATIVE) Ur Barbituates Screen (NEGATIVE) Ur Tricyclics Screen (NEGATIVE) Ur Phencyclidine Scrn (NEGATIVE) Ur Amphetamine Screen (NEGATIVE) Urine MDMA Screen (NEGATIVE) U Benzodiazepines Scrn (NEGATIVE) U Cocaine Metab Screen (NEGATIVE) U Marijuana (THC) Screen (NEGATIVE) Meds: Medications Discontinued Medications Generic Name Dose Route Start Last Admin Trade Name Saravanan PRN Reason Stop Dose Admin Acetaminophen 650 mg 11/25/18 00:16 11/25/18 00:19 Tylenol PO 11/25/18 00:17 650 mg NOW ONE Administration Ondansetron HCl 4 mg 11/25/18 00:23 11/25/18 00:39 Zofran Odt PO 11/25/18 00:24 4 mg ONETIME ONE Administration Departure - Departure Time of Disposition: 03:45 Disposition: Home, Self-Care 01 Condition: Good Clinical Impression: Drug abuse - Discharge Information Instructions: Illegal Drug Use Information, Adult Referrals: PCP,None [Primary Care Provider] - Forms: ED Department Discharge Additional Instructions: Call [facility] in the AM to set up appointment. [phone]. Come back if needed. - Problem List & Annotations (1) Drug overdose SNOMED Code(s): 55108018 Code(s): T50.901A - POISONING BY UNSP DRUG/MEDS/BIOL SUBST, ACCIDENTAL, INIT Status: Acute Current Visit: Yes Qualifiers: Encounter type: initial encounter - Problem List Review Problem List Initiated/Reviewed/Updated: Yes - My Orders Last 24 Hours: My Active Orders 11/24/18 23:21 EKG Documentation Completion [RC] ASDIRECTED EKG 12 Lead [EK] Routine - Assessment/Plan Last 24 Hours: My Active Orders 11/24/18 23:21 EKG Documentation Completion [RC] ASDIRECTED EKG 12 Lead [EK] Routine Plan: We called Poison Board,recommend monitoring for at least 4 hr after last dose of Narcan.
[2018-11-25] MEDS ORDERED: Acetaminophen 325 MG Tab PO ONE (00:16)
[2018-11-25] MEDS ORDERED: Ondansetron 4 MG Tab.DIS PO ONE (00:23)
== END 2018-11-25 03:18 | disposition home or self-care (01) ==
LOC: FB.ED 23:21
DX: O99.320 Drug use complicating pregnancy, unspecified trimester (principal); F19.10 Other psychoactive substance abuse, uncomplicated; O99.340 Other mental disorders complicating pregnancy, unspecified trimester; F41.9 Anxiety disorder, unspecified; O99.330 Smoking (tobacco) complicating pregnancy, unspecified trimester; F17.210 Nicotine dependence, cigarettes, uncomplicated; Z79.899 Other long term (current) drug therapy
CPT/HCPCS: 36415; 80053; 80305; 81025; 84484; 85025; 93005; 99285; A9270

== ENCOUNTER 2018-12-19 08:24 | Day surgery (SDC) | payer MEDICAID ==
[2018-12-19] MEDS ORDERED: Propofol 200 MG/20 ML SDV IV ONE (08:25)
[2018-12-19] MEDS ORDERED: Lidocaine 2% 100 MG/5 ML Syringe IVPUSH ONE (08:25)
[2018-12-19] MEDS ORDERED: Sodium Chloride 0.9% 10 ML Syringe FLUSH PRN (08:59)
[2018-12-19] MEDS ORDERED: Lactated Ringers 1,000 ML IV SCH (09:00)
--- NOTE | 2018-12-19 09:49 | PCM.OPNOTE ---
- General Post-Op/Procedure Note Date of Surgery/Procedure: 12/19/18 Operative Procedure(s): egd with bx Findings: gastroduodenitis Pre Op Diagnosis: melena epigatric pain. Fe def anemia Post-Op Diagnosis: gastroduodenitis Anesthesia Technique: ARABELLA Primary Surgeon: Rahat Cedeño Anesthesia Provider: Richi Story Pathology: stomach and duodenum Complications: None Condition: Good Free Text/Narrative:: see dictation
--- NOTE | 2018-12-19 13:13 | OR ---
DATE OF OPERATION: 12/19/2018 SURGEON: Rahat Cedeño MD PROCEDURE PERFORMED: Esophagogastroduodenoscopy with cold forceps biopsy. PREOPERATIVE DIAGNOSES: Epigastric abdominal pain with melena, iron deficiency anemia. POSTOPERATIVE DIAGNOSIS: Gastroduodenitis. INDICATIONS FOR PROCEDURE: This is a 23-year-old white female who is referred with the above-mentioned complaints. She was offered and accepted an endoscopy. DESCRIPTION OF OPERATION: After an excellent IV sedation was administered, the bite block was inserted. Flexible scope was passed down the esophagus into the stomach. Stomach was insufflated. Scope was passed through the pylorus to the duodenum to the second portion. Following findings were noted. In first portion of the duodenum, there was a patch of duodenitis. Biopsies were taken. Stomach demonstrated some diffuse gastritis. Biopsies were taken as well as the esophagus was unremarkable. Stomach was deflated. Scope was removed. Results by letter. /[id number] /DARLENE
== END 2018-12-19 10:48 | disposition home or self-care (01) ==
LOC: FB.SDS 08:24
PROVIDERS: ATTEND Surgery
DX: K29.31 Chronic superficial gastritis with bleeding (principal); K29.81 Duodenitis with bleeding; B96.81 Helicobacter pylori [H. pylori] as the cause of diseases classified elsewhere; D50.9 Iron deficiency anemia, unspecified; K21.9 Gastro-esophageal reflux disease without esophagitis; F41.9 Anxiety disorder, unspecified; F41.0 Panic disorder [episodic paroxysmal anxiety]; Z87.891 Personal history of nicotine dependence; Z79.899 Other long term (current) drug therapy
CPT/HCPCS: 43239; 81025; J2001; J2704; J7120; 88305; 88342

== ENCOUNTER 2021-06-13 20:45 | Emergency (ER) | payer MEDICAID ==
[2021-06-13] MEDS ORDERED: Ketorolac 10 MG Tab PO ONE (20:46)
--- NOTE | 2021-06-13 21:36 | EDM.PDOC ---
ED HPI GENERAL MEDICAL PROBLEM - General Chief Complaint: General Stated Complaint: COVID Time Seen by Provider: 06/13/21 21:12 Source of Information: Reports: Patient Left Lower Abdomen Pain Score (Numeric/FACES): 10 - Related Data Allergies Allergy/AdvReac Type Severity Reaction Status Date / Time No Known Allergies Allergy Verified 12/19/18 09:21 Home Meds: Home Meds ALPRAZolam [Alprazolam] 0.5 mg PO TID PRN 11/24/18 [History] Ascorbic Acid [Vitamin C] 1 tab PO DAILY 12/12/18 [History] Ferrous Sulfate [Iron] 1 tab PO DAILY 12/12/18 [History] Omeprazole 1 cap PO DAILY 12/12/18 [History] Past Medical History - Past Health History Medical/Surgical History: Denies Medical/Surgical History HEENT History: Reports: Impaired Vision Cardiovascular History: Reports: None Respiratory History: Reports: None Gastrointestinal History: Reports: None Genitourinary History: Reports: None 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: , 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 Musculoskeletal History: Reports: Fracture, Other (See Below) Other Musculoskeletal History: LEFT 5TH METACARPAL FX Neurological History: Reports: None Psychiatric History: Reports: Addiction, Anxiety, Depression Endocrine/Metabolic History: Reports: None Hematologic History: Reports: Anemia Immunologic History: Reports: None Oncologic (Cancer) History: Reports: None Dermatologic History: Reports: None - Past Surgical History Head Surgeries/Procedures: Reports: None HEENT Surgical History: Reports: None Cardiovascular Surgical History: Reports: None Respiratory Surgical History: Reports: None GI Surgical History: Reports: None Female Surgical History: Reports: None Endocrine Surgical History: Reports: None Neurological Surgical History: Reports: None Musculoskeletal Surgical History: Reports: ORIF Other Musculoskeletal Surgeries/Procedures:: LEFT 5TH METACARPAL FX AND ORIF Oncologic Surgical History: Reports: None Dermatological Surgical History: Reports: None Social & Family History - Family History Family Medical History: No Pertinent Family History - Caffeine Use Caffeine Use: Reports: Soda ED ROS GENERAL - Review of Systems Review Of Systems: See Below Constitutional: Reports: Malaise HEENT: Reports: No Symptoms Respiratory: Reports: Cough Cardiovascular: Reports: No Symptoms Endocrine: Reports: No Symptoms GI/Abdominal: Reports: Abdominal Pain, Decreased Appetite, Nausea : Reports: Flank Pain Musculoskeletal: Reports: Muscle Pain Skin: Reports: No Symptoms Neurological: Reports: Weakness Psychiatric: Reports: Anxiety Hematologic/Lymphatic: Reports: No Symptoms Immunologic: Reports: No Symptoms ED EXAM, GENERAL - Physical Exam Exam: See Below Free Text/Narrative:: Patient was able to stand out of bed although she is very uncomfortable in a lot of pain. She points to her right lower quadrant and somewhat across her abdomen and then to the right lower flank and states this is where the pain is the worst. On physical exam she was able to kind of half jump without any significant pain. However, with the patient laying supine she had significant tenderness to palpation in the right lower quadrant. Double leg lift was mildly uncomfortable and palpation of the right lower quadrant with her double leg lift showed significantly reduced pain then palpation without abdominal muscles tightened. Again, heeltap test was only mildly positive. Exam Limited By: No Limitations General Appearance: Alert, Mild Distress Eye Exam: Bilateral Eye: EOMI Throat/Mouth: Normal Inspection Head: Atraumatic, Normocephalic Respiratory/Chest: No Respiratory Distress, Lungs Clear Cardiovascular: Regular Rate, Rhythm GI/Abdominal: Normal Bowel Sounds, Tender Back Exam: CVA Tenderness (L), Paraspinal Tenderness. No: CVA Tenderness (R) Extremities: Normal Inspection Neurological: Alert, Oriented, CN II-XII Intact, Normal Cognition, Normal Gait Psychiatric: Anxious Skin Exam: Warm, Dry Course - Vital Signs Text/Narrative:: Review of labs is grossly within normal limits and without any significant concerns including the urinalysis. Patient was given 1 L normal saline and 30 mg IV ketorolac. She states that her pain improved significantly down to 3-4 out of 10. However, she is still very concerned because she still has the pain. I was able to speak with the emergency room physician at the [place], [place]. He states that they do have capacity and can perform a pelvic and abdominal ultrasound. Documents that she be seen as soon as they feel comfortable coming to the emergency department. Last Recorded V/S: Last Vital Signs Temp 37.6 C 06/13/21 22:55 Pulse 91 06/13/21 22:55 Resp 18 06/13/21 22:55 BP 135/71 06/13/21 22:55 Pulse Ox 97 06/13/21 22:55 - Orders/Labs/Meds Labs: Laboratory Tests 06/13/21 06/13/21 06/13/21 Range/Units 21:45 21:45 22:00 WBC 4.6 (3.0-10.3) x10-3/uL RBC 4.23 (3.60-5.20) x10(6)uL Hgb 13.2 (11.4-15.5) g/dL Hct 39.3 (34.2-48.2) % MCV 93.0 (76.7-100.5) fL MCH 31.2 (23.9-33.9) pg MCHC 33.6 (31.9-34.8) g/dL RDW 12.2 L (12.3-16.5) % Plt Count 187 (151-488) x10(3)uL MPV 7.5 (7.1-12.4) fL Neut % (Auto) 84.6 H (30.8-76.2) % Lymph % (Auto) 5.8 L (18.4-52.1) % [place] % (Auto) 7.5 (4.4-15.7) % Eos % (Auto) 1.7 (0.6-8.1) % Baso % (Auto) 0.4 (0.2-1.5) % Neut # (Auto) 3.9 (1.5-6.3) x10-3/uL Lymph # (Auto) 0.3 L (1.0-4.4) x10-3/uL [place] # (Auto) 0.3 (0.3-1.0) x10-3/uL Eos # (Auto) 0.1 (0.0-0.8) x10-3/uL Baso # (Auto) 0.0 (0.0-0.1) x10-3/uL Sodium 137 (135-145) mmol/L Potassium 3.4 L (3.5-5.3) mmol/L Chloride 102 (100-110) mmol/L Carbon Dioxide 26 (21-32) mmol/L BUN 7 (7-18) mg/dL Creatinine 0.8 (0.55-1.02) mg/dL Est Cr Clr Drug Dosing TNP Estimated GFR (MDRD) > 60 (>60) BUN/Creatinine Ratio 8.8 L (9-20) Glucose 93 (80-116) mg/dL Calcium 8.5 L (8.6-10.2) mg/dL Total Bilirubin 0.3 (0.1-1.3) mg/dL AST 17 D (5-25) IU/L ALT 19 D (12-36) U/L Alkaline Phosphatase 43 L (56-112) IU/L Creatine Kinase 39 L (60-160) IU/L Total Protein 7.1 (6.0-8.0) g/dL Albumin 3.8 (3.5-5.2) g/dL Globulin 3.3 g/dL Albumin/Globulin Ratio 1.2 Urine Color Yellow (YELLOW) Urine Appearance Clear (CLEAR) Urine pH 7.0 H (5.0-6.5) Ur Specific [place] 1.010 (1.010-1.025) Urine Protein Negative (NEGATIVE) mg/dL Urine Glucose (UA) Normal (NORMAL) mg/dL Urine Ketones 15 H (NEGATIVE) mg/dL Urine Occult Blood Negative (NEGATIVE) Urine Nitrite Negative (NEGATIVE) Urine Bilirubin Negative (NEGATIVE) Urine Urobilinogen Normal (NEGATIVE) mg/dL Ur Leukocyte Esterase Negative (NEGATIVE) Urine RBC 0-5 (0-5) Urine WBC 0-5 (0-5) Ur Squamous Epith Cells Few H (NS,R,O) Urine Bacteria Rare H (NS) Meds: Medications Discontinued Medications Generic Name Dose Route Start Last Admin Trade Name Freq PRN Reason Stop Dose Admin Sodium Chloride 1,000 mls @ 999 mls/hr 06/13/21 21:56 06/13/21 22:03 Normal Saline IV 06/13/21 22:56 999 mls/hr .BOLUS ONE Administration Ketorolac Tromethamine 30 mg 06/13/21 21:57 06/13/21 22:02 Ketorolac 30 Mg/Ml Sdv IVPUSH 06/13/21 21:58 30 mg ONETIME ONE Administration Departure - Departure Time of Disposition: 23:42 Disposition: Home, Self-Care 01 Condition: Good Clinical Impression: Right lower quadrant pain, Pelvic pain - Discharge Information *PRESCRIPTION DRUG MONITORING PROGRAM REVIEWED*: Not Applicable *COPY OF PRESCRIPTION DRUG MONITORING REPORT IN PATIENT MAYTE: Not Applicable Instructions: Pelvic Pain, Female, [id number], Abdominal Pain, Adult, [id number] Referrals: Alcides Mendoza MD [Primary Care Provider] - Forms: ED Department Discharge Additional Instructions: I informed the patient that I contact the emergency medicine at [facility] in [facility]. I informed her that I do have concern that she could still have pathology involving her appendix and/or her ovary. I informed her that this pain could represent an ovarian cyst, ovarian torsion, or an acute appendicitis. I informed her that these could be very serious and even a life-threatening situation. She has spoken with her boyfriend and is soon as they feel comfortable given the weather and road conditions they will drive to [facility], [place] for further evaluation and abdominal/pelvic ultrasound. She will be given ketorolac, 10 mg pills to take home to help with pain. She should take the pills 1 every 6 hours as needed for pain. I advised her that she can take 500 mg of acetaminophen every 4 hours for pain. Again, I impressed upon her how important it is to have the imaging performed to rule out serious illness. Sepsis Event Note (ED) - Focused Exam Vital Signs: Vital Signs Temp Pulse Resp BP Pulse Ox 06/13/21 22:55 37.6 C 91 18 135/71 97
[2021-06-13] MEDS ORDERED: Sodium Chloride 0.9% 1,000 ML IV ONE (21:56)
[2021-06-13] MEDS ORDERED: Ketorolac 30 MG/ML SDV IVPUSH ONE (21:57)
[2021-06-13] MEDS ORDERED: Acetaminophen 325 MG Tab PO ONE (23:49)
== END 2021-06-14 00:01 | disposition home or self-care (01) ==
LOC: FB.ED 20:45
DX: R10.31 Right lower quadrant pain (principal); R10.2 Pelvic and perineal pain; Z79.899 Other long term (current) drug therapy
CPT/HCPCS: 36415; 80053; 81001; 82550; 85025; 96374; 99284; A9270; J1885; J7030

== ENCOUNTER 2022-08-25 15:42 | Emergency (ER) | payer MEDICAID ==
[2022-08-25] MEDS ORDERED: Sodium Chloride 0.9% 1,000 ML IV ONE (16:27)
[2022-08-25] MEDS ORDERED: Sodium Chloride 0.9% 10 ML Syringe FLUSH PRN (16:27)
[2022-08-25] MEDS ORDERED: Promethazine 12.5 MG in Sodium Chloride 0.9% 50 ML IV ONE (16:28)
[2022-08-25 16:47] LABS: ESTIMATED GFR 128 mL/min (>60)
[2022-08-25] MEDS ORDERED: Promethazine 25 MG Tab PO ONE (18:23)
== END 2022-08-25 18:46 | disposition home or self-care (01) ==
LOC: FB.ED 15:42
DX: O99.891 Other specified diseases and conditions complicating pregnancy (principal); R10.84 Generalized abdominal pain; O21.2 Late vomiting of pregnancy; R19.7 Diarrhea, unspecified; Z87.891 Personal history of nicotine dependence; Z20.822 Contact with and (suspected) exposure to COVID-19; Z3A.38 38 weeks gestation of pregnancy
CPT/HCPCS: 36415; 80053; 80307; 81001; 83605; 83690; 83735; 85025; 96361; 96365; 99284-25; A9270-GY; J2550; J3490; J7030; U0002

== ENCOUNTER 2023-06-14 17:55 | Emergency (ER) | payer MEDICAID ==
[~2023-06-14 17:55] MED LIST: Ketorolac 30 MG/ML SDV IVPUSH ONE
[2023-06-14] MEDS ORDERED: Acetaminophen/oxyCODONE 325-5 MG Tab PO ONE (17:56)
[2023-06-14] MEDS ORDERED: LORazepam 2 MG/ML SDV IVPUSH ONE (18:33)
[2023-06-14] MEDS ORDERED: HYDROmorphone 2 MG/ML SDV IVPUSH ONE (18:33)
[2023-06-14] MEDS ORDERED: Naloxone 0.4 MG/ML SDV IVPUSH PRN (18:33)
[2023-06-14] MEDS ORDERED: Sodium Chloride 0.9% 1,000 ML IV ONE (19:31)
[2023-06-14] MEDS ORDERED: Lidocaine 2% Viscous Solution 15 ML UD PO ONE (19:32)
[2023-06-14] MEDS ORDERED: Bacitracin Oint 28.35 GM Tube TOP SCH (21:00)
== END 2023-06-14 20:15 | disposition home or self-care (01) ==
LOC: FB.ED 17:55
DX: T23.201A Burn of second degree of right hand, unspecified site, initial encounter (principal); T22.232A Burn of second degree of left upper arm, initial encounter; T21.22XA Burn of second degree of abdominal wall, initial encounter; T25.222A Burn of second degree of left foot, initial encounter; Z86.16 Personal history of COVID-19; T31.0 Burns involving less than 10% of body surface; X10.2XXA Contact with fats and cooking oils, initial encounter; Y92.000 Kitchen of unspecified non-institutional (private) residence as the place of occurrence of the external cause; Y93.G1 Activity, food preparation and clean up
CPT/HCPCS: 16020; 96374; 96375; 99284-25; A9270-GY; J1170; J1885; J2060; J7030

== ENCOUNTER 2023-09-22 20:39 | Emergency (ER) | payer MEDICAID ==
[2023-09-22] MEDS ORDERED: Ondansetron 4 MG Tab.DIS PO ONE (20:40)
[2023-09-22] MEDS ORDERED: Sodium Chloride 0.9% 10 ML Syringe FLUSH PRN (20:59)
[2023-09-22] MEDS: Sodium Chloride 0.9% 1,000 ML IV SCH (21:26)
[2023-09-22] MEDS: Ondansetron 4 MG/2 ML SDV IVPUSH ONE (21:27)
[2023-09-22 21:34] LABS: BASOPHILS PERCENT AUTO 0.3 % (0.2-1.5); EOSINOPHILS PERCENT AUTO 0.4 % (0.6-8.1); HEMOGLOBIN 13.7 g/dL (11.4-15.5); LYMPHOCYTES ABSOLUTE AUTO 0.9 x10-3/uL (1.0-4.4); LYMPHOCYTES PERCENT AUTO 9.8 % (18.4-52.1); MEAN CORPUSCULAR HEMOGLOBIN 31.6 pg (23.9-33.9); MEAN CORPUSCULAR HGB CONC 34.3 g/dL (31.9-34.8); MEAN PLATELET VOLUME 7.7 fL (7.1-12.4); MONOCYTES ABSOLUTE AUTO 0.4 x10-3/uL (0.3-1.0); MONOCYTES PERCENT AUTO 4.5 % (4.4-15.7); NEUTROPHILS ABSOLUTE AUTO 7.6 x10-3/uL (1.5-6.3); PLATELET COUNT,PLT 205 x10(3)uL (151-488); RED BLOOD CELL COUNT 4.35 x10(6)uL (3.60-5.20); RED CELL DISTRIBUTION WIDTH 12.6 % (12.3-16.5); WHITE BLOOD CELL COUNT,WBC 8.9 x10-3/uL (3.0-10.3)
[2023-09-22 21:36] LABS: BLOOD UREA NITROGEN,BUN 5 mg/dL (7-18); BUN/CREATININE RATIO 12.5 (9-20); CALCIUM 8.6 mg/dL (8.6-10.2); CARBON DIOXIDE,CO2 22 mmol/L (21-32); CHLORIDE,CL 100 mmol/L (100-110); CREATININE 0.4 mg/dL (0.55-1.02); ESTIMATED GFR 140 mL/min (>60); GLUCOSE RANDOM 94 mg/dL (80-116); POTASSIUM,K 3.5 mmol/L (3.5-5.3); SODIUM,NA 135 mmol/L (135-145)
[2023-09-22 22:09] LABS: INFLUENZA A NAA NEGATIVE (NEGATIVE); INFLUENZA B NAA NEGATIVE (NEGATIVE); RESPIRATORY SYNCYTIAL VIR NAA NEGATIVE (NEGATIVE)
[2023-09-22 22:11] LABS: CORONAVIRUS COVID-19 NAA NEGATIVE (NEGATIVE)
[2023-09-22 22:11] LABS: BILIRUBIN,URINE NEGATIVE (NEGATIVE); GLUCOSE,URINE NORMAL (NORMAL); KETONES,URINE 150 mg/dL (NEGATIVE); LEUKOCYTE ESTERASE,URINE NEGATIVE (NEGATIVE); NITRITE,URINE NEGATIVE (NEGATIVE); OCCULT BLOOD,URINE NEGATIVE (NEGATIVE); PROTEIN,URINE NEGATIVE (NEGATIVE); UROBILINOGEN,URINE NORMAL (NEGATIVE)
[2023-09-22 22:13] LABS: APPEARANCE,URINE CLEAR (CLEAR); BACTERIA,URINE RARE (NS); COLOR,URINE YELLOW (YELLOW); RBC,URINE 0-5 (0-5); SQUAMOUS EPITHELIAL CELLS,UR OCCASIONAL (NS,R,O); WBC,URINE 0-5 (0-5)
== END 2023-09-22 22:49 | disposition home or self-care (01) ==
LOC: FB.ED 20:39
DX: O98.511 Other viral diseases complicating pregnancy, first trimester (principal); B34.9 Viral infection, unspecified; O99.281 Endocrine, nutritional and metabolic diseases complicating pregnancy, first trimester; E86.0 Dehydration; Z86.16 Personal history of COVID-19; Z3A.11 11 weeks gestation of pregnancy
CPT/HCPCS: 0241U; 36415; 80048; 81001; 85025; 96361; 96374; 99284; J2405; J7030; Q0162

== ENCOUNTER 2024-08-04 12:00 | Emergency (ER) | payer MEDICAID ==
[2024-08-04] MEDS ORDERED: Sodium Chloride 0.9% 10 ML Syringe FLUSH PRN (12:27)
[2024-08-04] MEDS: Ondansetron 4 MG/2 ML SDV IVPUSH ONE (12:40)
[2024-08-04] MEDS: Sodium Chloride 0.9% 1,000 ML IV ONE ×2 (12:40→14:50)
[2024-08-04] MEDS: Ketorolac 30 MG/ML SDV IVPUSH ONE (12:41)
[2024-08-04 12:49] LABS: BASOPHILS PERCENT AUTO 0.3 % (0.2-1.5); BLOOD UREA NITROGEN,BUN 13 mg/dL (7-18); BUN/CREATININE RATIO 21.7 (9-20); CALCIUM 9.1 mg/dL (8.6-10.2); CARBON DIOXIDE,CO2 21 mmol/L (21-32); CHLORIDE,CL 97 mmol/L (100-110); CREATININE 0.6 mg/dL (0.55-1.02); EST CRCL DRUG DOSING (CG) 126.73 mL/min; ESTIMATED GFR 126 mL/min (>60); GLUCOSE RANDOM 73 mg/dL (80-116); HEMATOCRIT 43.5 % (34.2-48.2); HEMOGLOBIN 15.3 g/dL (11.4-15.5); LYMPHOCYTES PERCENT AUTO 16.6 % (18.4-52.1); MEAN CORPUSCULAR HEMOGLOBIN 31.5 pg (23.9-33.9); MEAN CORPUSCULAR HGB CONC 35.2 g/dL (31.9-34.8); MEAN CORPUSCULAR VOLUME 89.6 fL (76.7-100.5); MEAN PLATELET VOLUME 7.1 fL (7.1-12.4); MONOCYTES ABSOLUTE AUTO 0.6 x10-3/uL (0.3-1.0); NEUTROPHILS ABSOLUTE AUTO 4.2 x10-3/uL (1.5-6.3); NEUTROPHILS PERCENT AUTO 72.1 % (30.8-76.2); PLATELET COUNT,PLT 218 x10(3)uL (151-488); POTASSIUM,K 3.6 mmol/L (3.5-5.3); RED BLOOD CELL COUNT 4.85 x10(6)uL (3.60-5.20); SODIUM,NA 134 mmol/L (135-145); WHITE BLOOD CELL COUNT,WBC 5.9 x10-3/uL (3.0-10.3)
[2024-08-04 12:56] LABS: A/G RATIO 0.9; ALANINE AMINOTRANSFERASE,ALT 30 U/L (12-36); ALKALINE PHOSPHATASE 88 IU/L (56-112); ASPARTATE AMNIOTRANSFERASE,AST 22 IU/L (5-25); BILIRUBIN TOTAL 0.6 mg/dL (0.1-1.3); PROTEIN TOTAL,TP 8.3 g/dL (6.0-8.0)
[2024-08-04] MEDS: Sodium Chloride 0.9% 1,000 ML IV SCH (13:20)
[2024-08-04] MEDS: SUMAtriptan 6 MG/0.5 ML SDV SUBCUT ONE (14:54)
== END 2024-08-04 16:00 | disposition home or self-care (01) ==
LOC: FB.ED 12:00
DX: J10.1 Influenza due to other identified influenza virus with other respiratory manifestations (principal); E86.0 Dehydration; Z86.16 Personal history of COVID-19; Z87.891 Personal history of nicotine dependence; Z79.899 Other long term (current) drug therapy
CPT/HCPCS: 80053; 85025; 96361; 96372; 96374; 96375; 99284-25; J1885; J2405; J3030